=== PATIENT | female | born 1975 ===

== ENCOUNTER 2018-06-18 12:22 | Emergency (ER) | payer OTHER ==
[2018-06-18] MEDS ORDERED: Sodium Chloride 0.9% 1,000 ML IV STA (12:46)
[2018-06-18 13:13] LABS: URINE BILIRUBIN NEGATIVE (NEGATIVE); URINE BLOOD SMALL (NEGATIVE); URINE GLUCOSE (UA) NEGATIVE (NEGATIVE); URINE LEUKOCYTE ESTERASE NEGATIVE Leu/uL (NEGATIVE); URINE PROTEIN NEGATIVE mg/dL (<30 mg/dL); URINE UROBILINOGEN 0.2 E.U./dL (<1 E.U./dL)
[2018-06-18] MEDS ORDERED: Morphine 4 mg/ml ISec IVP STA (13:15)
[2018-06-18 13:16] LABS: URINE APPEARANCE SL CLOUDY (CLEAR); URINE COLOR YELLOW (YELLOW)
[2018-06-18 13:21] LABS: URINE RBC 0 - 2 /hpf (0-2)
[2018-06-18 13:22] LABS: URINE WBC NEGATIVE /hpf (0-6)
[2018-06-18 13:49] LABS: BASO # 0.01 K/mm3 (0.0-2.0); BASO % 0.2 % (0.0-3.0); EOS # 0.4 (0.0-0.7); EOS % 7.4 % (1.5-5.0); GRAN # 2.48 (1.4-6.5); GRAN % 44.6 % (50.0-68.0); HEMOGLOBIN 12.9 g/dL (12.0-16.0); LYMPH # 2.3 (1.2-3.4); LYMPH % 40.8 % (22.0-35.0); MEAN CORPUSCULAR HEMOGLOBIN 30.4 pg (25.0-35.0); MEAN CORPUSCULAR HGB CONC 33.4 g/dl (31.0-37.0); MEAN PLATELET VOLUME 9.5 fl (7.0-11.0); MONO # 0.4 (0.1-0.6); RBC 4.24 10^6/uL (3.5-6.1); RED CELL DISTRIBUTION WIDTH 12.8 % (11.5-14.5); WHITE BLOOD COUNT 5.6 10^3/uL (4.5-11.0)
--- NOTE | 2018-06-18 14:11 | ED PDOC ---
Arrival/HPI - General Chief Complaint: Abdominal Pain Time Seen by Provider: 06/18/18 12:25 Historian: Patient - History of Present Illness Narrative History of Present Illness (Text): 06/18/18 12:46 42 year old female, with past medical history of nephrolithiasis and uterine fibroids, presents to the ED for evaluation of left lower quadrant abdominal pain since 1 week. Patient informs associated mild nausea and dysuria. Patient informs medical evaluation at another facility on 06/09/18 for similar symptoms and was discharged home with diagnosis of uterine fibroids. Patient states appropriate PO intake and denies any other medical complaints. Patient denies any fevers, chills, headache, dizziness, chest pain, shortness of breath, dyspnea on exertion, cough, vomiting, diarrhea, back pain, hematuria, dark stool, vaginal bleeding/discharge, neck pain, or any other complaints. Time/Duration: 1 week Symptom Onset: Gradual Symptom Course: Unchanged Activities at Onset: Light Context: Home Past Medical History - Provider Review Nursing Documentation Reviewed: Yes - Infectious Disease Hx of Infectious Diseases: None - Renal Hx Kidney Stones: Yes - Genitourinary/Gynecological Other/Comment: Fibroids - Psychiatric Hx Substance Use: Yes - Surgical History Hx Section: Yes - Anesthesia Hx Anesthesia: Yes Hx Anesthesia Reactions: No Hx Malignant Hyperthermia: No - Suicidal Assessment Feels Threatened In Home Enviroment: No Family/Social History - Physician Review Nursing Documentation Reviewed: Yes Family/Social History: Unknown Family HX Smoking Status: Former Smoker Hx Alcohol Use: Yes Hx Substance Use: Yes Substance used: marijuana Allergies/Home Meds Allergies/Adverse Reactions: Allergies No Known Allergies Allergy (Verified 03/11/17 09:32) Review of Systems - Physician Review All systems were reviewed & negative as marked: Yes - Review of Systems Constitutional: absent: Fevers Respiratory: absent: SOB, Cough Cardiovascular: absent: Chest Pain, GOTTI Gastrointestinal: Abdominal Pain, Nausea. absent: Diarrhea, Vomiting, Hematochezia, Hematemesis Genitourinary Female: Dysuria. absent: Frequency, Hematuria, Vaginal Bleeding, Vaginal Discharge Musculoskeletal: absent: Back Pain, Neck Pain Skin: absent: Rash Neurological: absent: Headache, Dizziness Physical Exam Vital Signs Reviewed: Yes Vital Signs Temp Pulse Resp BP Pulse Ox 06/18/18 12:40 97.9 F 75 17 112/65 100 Temperature: Afebrile Blood Pressure: Normal Pulse: Regular Respiratory Rate: Normal Appearance: Positive for: Well-Appearing, Non-Toxic, Comfortable Pain Distress: Mild Mental Status: Positive for: Alert and Oriented X 3 - Systems Exam Head: Present: Atraumatic, Normocephalic Pupils: Present: PERRL Extroacular Muscles: Present: EOMI Conjunctiva: Present: Normal Respiratory/Chest: Present: Clear to Auscultation, Good Air Exchange. No: Respiratory Distress, Accessory Muscle Use Cardiovascular: Present: Regular Rate and Rhythm, Normal S1, S2. No: Murmurs Abdomen: Present: Tenderness (Lower abdominal tenderness left greater than right). No: Distention, Peritoneal Signs Upper Extremity: Present: Normal Inspection. No: Cyanosis, Edema Lower Extremity: Present: Normal Inspection. No: Edema Neurological: Present: GCS=15, CN II-XII Intact, Speech Normal Skin: Present: Warm, Dry, Normal Color. No: Rashes Psychiatric: Present: Alert, Oriented x 3, Normal Insight, Normal Concentration Medical Decision Making ED Course and Treatment: 06/18/18 12:26 Impression: 42 year old female presents to the ED for evaluation of left lower quadrant abdominal pain since 1 week. Plan: -- CT of Abdomen/Pelvis -- Labs -- Morphine -- IV Fluids -- Toradol -- Zofran -- Urine Culture -- Urinalysis -- Transvaginal US -- Reassess and disposition Prior Visits: Notes and results from previous visits were reviewed. Progress Notes: 06/18/18 15:30 Transvaginal US reviewed by radiologist, shows fibroid uterus. 06/18/18 16:38 Upon reevaluation, patient is feeling better and will be ready for discharge. Patient has been advised to follow up with her civil draftsman as soon as possible. Patient has agreed to plan. - Lab Interpretations Lab Results: 06/18/18 13:30 Lab Results 06/18/18 13:30: WBC 5.6, RBC 4.24, Hgb 12.9, Hct 38.6, MCV 91.0, MCH 30.4, MCHC 33.4, RDW 12.8, Plt Count 332, MPV 9.5, Gran % 44.6 L, Lymph % (Auto) 40.8 H, Sibley % (Auto) 7.0 H, Eos % (Auto) 7.4 H, Baso % (Auto) 0.2, Gran # 2.48, Lymph # (Auto) 2.3, Sibley # (Auto) 0.4, Eos # (Auto) 0.4, Baso # (Auto) 0.01 06/18/18 13:00: Urine Color Yellow, Urine Appearance Sl cloudy, Urine pH 6.0, Ur Specific Crane 1.025, Urine Protein Negative, Urine Glucose (UA) Negative, Urine Ketones Negative, Urine Blood Small H, Urine Nitrate Negative, Urine Bilirubin Negative, Urine Urobilinogen 0.2, Ur Leukocyte Esterase Negative, Urine RBC 0 - 2, Urine WBC Negative, Ur Epithelial Cells 3 - 4 - RAD Interpretation Radiology Orders: 06/18/18 13:15 ABD & PELVIS IV CONTRAST ONLY [CT] Stat TRANSVAGINAL [US] Stat Button Maker: Radiologist - Medication Orders Current Medication Orders: Discontinued Medications Sodium Chloride (Sodium Chloride 0.9%) 1,000 mls @ 1,000 mls/hr IV .Q1H STA Stop: 06/18/18 13:45 Last Admin: 06/18/18 13:42 Dose: 1,000 mls/hr eMAR Start Stop Document 06/18/18 13:42 EB (Rec: 06/18/18 13:43 [id number]) Intravenous Solution Start Date 06/18/18 Start Time 13:43 End Date 06/18/18 End time 14:43 Total Infusion Time 60 Ketorolac Tromethamine (Toradol) 30 mg IVP STAT STA Stop: 06/18/18 12:47 Last Admin: 06/18/18 13:42 Dose: 30 mg MAR Pain Assessment Document 06/18/18 13:42 EB (Rec: 06/18/18 13:42 [facility] [id number]) Pain Reassessment Is this a pain reassessment? No Sleep Is patient sleeping during reassessment? No Presence of Pain Presence of Pain Yes Pain Scale Used Protocol: PSCALES Pain Scale Used Numeric Description Intensity of Pain at present 9 Pain Behavior Moaning Crying IVP Administration Document 06/18/18 13:42 EB (Rec: 06/18/18 13:42 [facility] [id number]) Charges for Administration # of IVP Administrations 1 Morphine Sulfate (Morphine) 4 mg IVP STAT STA Stop: 06/18/18 13:16 Last Admin: 06/18/18 13:41 Dose: 4 mg MAR Pain Assessment Document 06/18/18 13:41 EB (Rec: 06/18/18 13:42 [id number]) Pain Reassessment Is this a pain reassessment? No Sleep Is patient sleeping during reassessment? No Presence of Pain Presence of Pain Yes Pain Scale Used Protocol: PSCALES Pain Scale Used Numeric Description Intensity of Pain at present 10 Pain Behavior Moaning Crying Facial Grimacing IVP Administration Document 06/18/18 13:41 EB (Rec: 06/18/18 13:42 [id number]) Charges for Administration # of IVP Administrations 1 Ondansetron HCl (Zofran Inj) 4 mg IVP STAT STA Stop: 06/18/18 12:47 Last Admin: 06/18/18 13:42 Dose: 4 mg IVP Administration Document 06/18/18 13:42 EB (Rec: 06/18/18 13:42 [facility] [id number]) Charges for Administration # of IVP Administrations 1 - Scribe Statement The provider has reviewed the documentation as recorded by the Scribe Sharla Patton. All medical record entries made by the Scribe were at my direction and personally dictated by me. I have reviewed the chart and agree that the record accurately reflects my personal performance of the history, physical exam, medical decision making, and the department course for this patient. I have also personally directed, reviewed, and agree with the discharge instructions and disposition. Disposition/Present on Arrival - Present on Arrival Any Indicators Present on Arrival: No History of DVT/PE: No History of Uncontrolled Diabetes: No Urinary Catheter: No History of Decub. Ulcer: No History Surgical Site Infection Following: None - Disposition Have Diagnosis and Disposition been Completed?: Yes Diagnosis: Uterine fibroid, Ovarian cyst Disposition: HOME/ ROUTINE Disposition Time: 16:20 Condition: IMPROVED Discharge Instructions (ExitCare): Ovarian Cyst (DC), Uterine Fibroids (DC) Additional Instructions: TWIN ASHLEY, thank you for letting us take care of you today. The emergency medical care you received today was directed at your acute symptoms. If you were prescribed any medication, please fill it and take as directed. It may take several days for your symptoms to resolve. Return to the Emergency Department if your symptoms worsen, do not improve, or if you have any other problems. Please contact your doctor or call one of the physicians/clinics you have been referred to that are listed on the Patient Visit Information form that is in cluded in your discharge packet. Bring any paperwork you were given at discharge with you along with any medications you are taking to your follow up visit. Our treatment cannot replace ongoing medical care by a primary care provider outside of the emergency department. Thank you for allowing the [facility] team to be part of your care today. Follow up with your TIMBER MANAGEMENT PROFESSOR doctor in 2-3 days for re-evaluation and further management. Prescriptions: Ibuprofen [Motrin Tab] 800 mg PO Q6 PRN #20 tab PRN Reason: Pain, Moderate (4-7) Referrals: Ken Loza MD [Primary Care Provider] - Follow up with primary Forms: RADEUM (Norwegian)
[2018-06-18 14:13] LABS: ALB/GLOB RATIO 1.2 (1.1-1.8); ALBUMIN 4.2 g/dL (3.0-4.8); ALT/SGPT 33 U/L (7-56); AST/SGOT 26 U/L (14-36); BLOOD UREA NITROGEN 21 mg/dL (7-21); CALCIUM 9.6 mg/dL (8.4-10.5); GFR NON-AFRICAN AMERICAN > 60; LIPASE 40 U/L (23-300)
[2018-06-18] MEDS ORDERED: Iohexol 350 MG/100 ML VIAL ONE (15:10)
--- NOTE | 2018-06-18 15:30 | US ---
Date of service: 06/18/2018 HISTORY: LLQ tenderness COMPARISON: None available. TECHNIQUE: Transvaginal pelvic ultrasound FINDINGS: Limited study due to patient discomfort. UTERUS: Measures 12.3 x 4.0 x 5.2 cm. Anteverted. Two probable uterine fibroids measuring 2.6 x 3.0 x 3.1 cm (posterior) and 4.1 x 3.0 x 3.4 cm (anterior pedunculated) ENDOMETRIUM: Measures 0.2 cm in diameter. CERVIX: No cervical abnormality identified. RIGHT OVARY: Measures 2.9 x 1.9 x 2.8 cm. Blood flow is demonstrated. LEFT OVARY: Measures 2.6 x 2.1 x 2.2 cm. Blood flow is demonstrated. FREE FLUID: No significant free fluid noted. OTHER FINDINGS: None. IMPRESSION: Limited study as above. Fibroid uterus.
--- NOTE | 2018-06-18 16:07 | CT ---
Date of service: 06/18/2018 PROCEDURE: CT Abdomen and Pelvis with contrast HISTORY: LLQ tenderness r/o torsion COMPARISON: None available TECHNIQUE: Contrast dose: 100 mL Omnipaque 350 Radiation dose: Total exam DLP = 714.81 mGy-cm. This CT exam was performed using one or more of the following dose reduction techniques: Automated exposure control, adjustment of the mA and/or kV according to patient size, and/or use of iterative reconstruction technique. FINDINGS: LOWER THORAX: No visible consolidation, pleural effusion, or pneumothorax. LIVER: Unremarkable. GALLBLADDER AND BILE DUCTS: Unremarkable. PANCREAS: Unremarkable. SPLEEN: Unremarkable. ADRENALS: Unremarkable. KIDNEYS AND URETERS: The kidneys enhance symmetrically. No hydronephrosis or obstructing calculus identified. Punctate nonobstructing right renal calculi. VASCULATURE: No aortic aneurysm. No atherosclerotic calcification or mural plaque present. BOWEL: Stomach is nondistended. Lack of oral contrast limits evaluation for bowel pathology. Bowel loops appear within normal limits of caliber without evidence of obstruction. APPENDIX: The appendix appears within normal limits of caliber. No secondary signs of acute appendicitis. PERITONEUM: No significant free fluid. No definite free air. LYMPH NODES: No bulky adenopathy identified. BLADDER: Unremarkable. REPRODUCTIVE: Uterus is present. 1.6 cm right adnexal cyst, likely ovarian. 1.2 cm left adnexal cyst, likely ovarian. Bulky heterogeneous appearance of the cervix. Probable 3.1 cm exophytic left fundal fibroid. BONES: Mild degenerative changes. OTHER FINDINGS: None. IMPRESSION: Diverticulosis without CT evidence of acute diverticulitis. Nonobstructing right renal calculi. Bulky heterogeneous appearance of the cervix, indeterminate significance; recommend clinical correlation and follow-up with pelvic ultrasound, pelvic exam, and Pap smear. Probable 3.1 cm exophytic left fundal fibroid. Bilateral probable ovarian cysts. This may also be assessed with pelvic ultrasound. Additional findings as above.
[2018-06-18 17:11] VITALS: BP 125/75; PULSE 61; RESP 18; TEMP 98.6; O2SAT 100
== END 2018-06-18 17:11 | disposition home or self-care (01) ==
LOC: ED 12:22
DX: D25.9 Leiomyoma of uterus, unspecified (principal); N83.202 Unspecified ovarian cyst, left side; Z87.442 Personal history of urinary calculi
CPT/HCPCS: 74177; 76830; 80053; 81001; 83690; 83735; 85025; 87086; 96361; 96374; 96375; 99283; J1885; J2270; J2405; J7030; Q9967